=== PATIENT | male | born 1995 | race American Indian/Alaskan Native ===

== ENCOUNTER 2024-05-30 11:44 | Emergency (ER) | payer MEDICAID, OTHER ==
[~2024-05-30] VITALS: Ht 172.7 cm; Wt 47.7 kg
[2024-05-30 13:00] VITALS: PULSE 68; RESP 14; O2SAT 99
[2024-05-30] MEDS: SODIUM CHLORIDE 0.9% 500 ML IV ONE (13:00)
[2024-05-30 13:15] LABS: Basophils # (auto) 0 10 ^3/uL (0-0.2); Basophils % (auto) 0.6 % (0.0-2.0); Eosinophils # (auto) 0 10 ^3/uL (0-0.8); Eosinophils % (auto) 0.5 % (0.0-7.0); Hematocrit 40.3 % (41.0-53.0); Hemoglobin 13.7 g/dL (13.5-17.5); Lymphocytes # (auto) 1.2 10 ^3/uL (0.4-5.4); Lymphocytes % (auto) 24.7 % (10.0-50.0); Mean Corpuscular Hemoglobin 32.7 pg (28.0-32.0); Mean Corpuscular Volume 96.3 fL (80.0-100.0); Monocytes # (auto) 0.4 10 ^3/uL (0-1.3); Monocytes % (auto) 7.2 % (0.0-12.0); Neutrophils # (auto) 3.3 10 ^3/uL (1.6-8.6); Platelet Count (auto) 141 10^3/uL (140-450); Red Blood Cells 4.18 10^6/uL (4.5-5.90); Red Cell Distribution Width 12.6 % (11.8-14.3); White Blood Cell 4.9 10^3/uL (4.4-10.8)
[2024-05-30 13:33] LABS: Alanine Aminotransferase 11 U/L (7-40); Albumin 4.3 g/dL (3.2-4.8); Alkaline Phosphatase 70 U/L (46-116); Anion Gap 6 (5-15); Aspartate Aminotransferase 14 U/L (13-40); BUN/Creatinine Ratio 12.3 (10.0-20.0); Blood Urea Nitrogen 14 mg/dL (9-23); Calcium 9.6 mg/dL (8.7-10.4); Carbon Dioxide 31 mmol/L (20-31); Chloride 105 mmol/L (98-107); Glucose 96 mg/dL (74-106); Potassium 4.2 mmol/L (3.5-5.1); Sodium 142 mmol/L (136-145)
[2024-05-30 13:34] LABS: Bilirubin, Total 0.6 mg/dL (0.2-1.0); Total Protein 6.9 g/dL (5.7-8.2)
[2024-05-30] MEDS: IOHEXOL 300 MG/ML 100ML BOTTLE IJ ONE (14:24)
--- NOTE | 2024-05-30 14:49 | DVH ---
Exam: CT CT AB PEL WITH IV CON ONLY History: ro mass, hx of cancer, now with diarrhea COMPARISON: None Technique: Multidetector spiral CT of the abdomen and pelvis was performed from lung bases to pubic s ymphysis. Intravenous contrast was administered during this examination. Portal venous imaging was obtained. Axial, coronal and sagittal multiplanar reformats were performed by the technologist on a separate workstation. Radiation Dose : 1. Abdomen/Pelvis: CTDIvol 5.1 mGy, DLP 244.52 mGy*cm. CONTRAST: Type of contrast: Omnipaque 300 Contrast injected: 100 ml Findings: Lung Bases: No acute or significant lung base finding. Normal heart size. No pleural or pericardial effusion. Liver: The liver is normal in size. No focal lesions. Normal hepatic vascular enhancement. Gallbladder and Biliary Tree: Cholelithiasis noted without secondary findings of cholecystitis or sweetie iary obstruction. Spleen: Unremarkable Pancreas: The pancreas is normal in appearance without focal lesions or abnormal enhancement. Adrenal Glands: Unremarkable Kidneys: No hydronephrosis. Bladder: Unremarkable Bowel: The stomach is grossly normal in appearance. Questionable wall thickening of the sigmoid colon and rectum may reflect mild proctocolitis. The appendix is not visualized; however, no secondary fi ndings of acute appendicitis identified. Ascites: Absent Lymphadenopathy: No mesenteric, retroperitoneal or periportal lymphadenopathy. Abdominal Wall and Mesentery: Unremarkable. Vasculature: The visualized abdominal aorta is normal in size and caliber. Abdominal and pelvic vess els demonstrate normal enhancement. Pelvic Organs: Unremarkable Musculoskeletal: No aggressive focal bony lesions, acute fractures or dislocation. IMPRESSION: 1. Questionable wall thickening of the sigmoid colon and rectum may reflect mild proctocolitis. 2. No suspicious mass or lymphadenopathy identified. Radiation optimization: All CT scans at this facility use at least one of these dose optimization kasandra hniques: automated exposure control mA and/or kV adjustment per patient size (includes targeted exam s where dose is matched to clinical indication) or iterative reconstruction.
--- NOTE | 2024-05-30 15:39 | ED.PDOC ---
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 Patient reports having symptoms, intermittently, for the past 6x months that worsened within the past few weeks, recently. Patient endorses on losing approximately 11lbs since. He states on no recent sick contact, travel, spoiled food, stressors, strenuous activities, or substance use/exposure along with any additional relevant or pertinent Hx. Patient reports being Dx with AML at the age of 17 and being Tx and in remission since the age of 18, with no f/u with an oncologist for >1 year. At time of assessment, he denies having any abdominal pain, hematemesis, hematochezia, rectal pain, urinary symptoms, or other associated symptoms or modifiers at this time. Chief Complaint: Diarrhea Time Seen by MD: 12:15 Reviewed Notes: Nurses Notes, Medications, Allergies Allergies: Coded Allergies: NO KNOWN ALLERGIES (Unverified , 05/30/24) Home Meds Active Scripts Metronidazole (Flagyl) 500 Mg Tab, 500 MG PO BID for 7 Days, #14 TAB Prov:MARTA STEWART MD 05/30/24 Ciprofloxacin Hcl (Cipro) 500 Mg Tab, 1 TAB PO BID for 7 Days, #14 TAB Prov:MARTA STEWART MD 05/30/24 Nutritional Supplements (ENSURE COMPLETE NUTRITION) Chocolat Liq, 1 BOTTLE PO TID, #30 BOTTLE Prov:MARTA STEWART MD 05/30/24 Information Source: Patient Mode of Arrival: Ambulatory Severity: Moderate Timing: Months Duration: Since onset Prehospital treatment: None Past Medical History PAST MEDICAL HISTORY: Cancer (AML leukemia, in-remission ) Surgical History: Denies all surgeries Family History Family History: Unknown Social History Smoker: Non-Smoker Alcohol: Denies ETOH Use Drugs: Denies Drug Use Lives In: Home Gastrointestinal: reports: diarrhea, nausea, poor appetite, vomiting, others (abdominal bloating; passing gas) Endocrine: reports: unexplained weight loss All Other Systems: Reviewed and Negative Physical Exam General Appearance: No Apparent Distress, Thin (malnourished ), Other (appears much older than stated age) HEENT: Normal ENT Inspection, Pharynx Normal, TMs Normal Neck: Full Range of Motion, Non-Tender, Normal, Normal Inspection Respiratory: Chest Non-Tender, Lungs Clear, No Accessory Muscle Use, No Respiratory Distress, Normal Breath Sounds Cardiovascular: No Edema, No JVD, No Murmur, No Gallop, Normal Peripheral Pulses, Regular Rate/Rhythm Breast Exam: Deferred Gastrointestinal: No Organomegaly, Non Tender, No Pulsatile Mass, Normal Bowel Sounds, Soft Genitalia: Deferred Pelvic: Deferred Rectal: Deferred Extremities: No calf tenderness, Normal capillary refill, Normal inspection, No rmal range of motion, Non-tender, No pedal edema Musculoskeletal : Apperance: Normal Neurologic: Alert, precision machine operator II-XII nml as Tested, No Motor Deficits, Normal Affect, Normal Mood, No Sensory Deficits Cerebellar Function: Normal Reflexes: Normal Skin: Dry, Normal Color, Warm Lymphatic: No Adenopathy Was a procedure done? Was a procedure done?: No Differential Dx Considerations may include: failure to thrive, cancer recurrence, viral syndrome, gastritis, gastroenteritis, spoiled food, acute abdomen X-Ray, Labs, Meds, VS Vital Signs Date Time Temp Pulse Resp B/P (MAP) Pulse Ox O2 Delivery O2 Flow Rate FiO2 05/30/24 15:59 58 18 109/66 (80) 98 05/30/24 13:00 68 14 99 Room Air* 0 21 05/30/24 13:00 68 14 100/60 (73) 99 05/30/24 12:11 98.9 88 16 102/73 (83) 100 Lab Test 05/30/24 13:02 Range/Units White Blood Count 4.9 4.4-10.8 10^3/uL Red Blood Count 4.18 L 4.5-5.90 10^6/uL Hemoglobin 13.7 13.5-17.5 g/dL Hematocrit 40.3 L 41.0-53.0 % Mean Corpuscular Volume 96.3 80.0-100.0 fL Mean Corpuscular Hemoglobin 32.7 H 28.0-32.0 pg Mean Corpuscular Hemoglobin Concent 34.0 32.0-36.0 g/dL Red Cell Distribution Width 12.6 11.8-14.3 % Platelet Count 141 140-450 10^3/uL Mean Platelet Volume 8.2 6.9-10.8 fL Neutrophils (%) (Auto) 67.0 37.0-80.0 % Lymphocytes (%) (Auto) 24.7 10.0-50.0 % Monocytes (%) (Auto) 7.2 0.0-12.0 % Eosinophils (%) (Auto) 0.5 0.0-7.0 % Basophils (%) (Auto) 0.6 0.0-2.0 % Neutrophils # (Auto) 3.3 1.6-8.6 10 ^3/uL Lymphocytes # (Auto) 1.2 0.4-5.4 10 ^3/uL Monocytes # (Auto) 0.4 0-1.3 10 ^3/uL Eosinophils # (Auto) 0 0-0.8 10 ^3/uL Basophils # (Auto) 0 0-0.2 10 ^3/uL Nucleated Red Blood Cells 0.0 % Sodium Level 142 136-145 mmol/L Potassium Level 4.2 3.5-5.1 mmol/L Chloride Level 105 98-107 mmol/L Carbon Dioxide Level 31 20-31 mmol/L Anion Gap 6 5-15 Blood Urea Nitrogen 14 9-23 mg/dL Creatinine 1.14 0.700-1.30 mg/dL Glomerular Filtration Rate Calc 90 >90 mL/min BUN/Creatinine Ratio 12.3 10.0-20.0 Serum Glucose 96 74-106 mg/dL Calcium Level 9.6 8.7-10.4 mg/dL Total Bilirubin 0.6 0.2-1.0 mg/dL Aspartate Amino Transferase (AST) 14 13-40 U/L Alanine Aminotransferase (ALT) 11 7-40 U/L Alkaline Phosphatase 70 46-116 U/L Total Protein 6.9 5.7-8.2 g/dL Albumin 4.3 3.2-4.8 g/dL Current Medications Medications (Trade) Dose Ordered Sig/Jimmie Route Start Time Stop Time Status Last Admin Sodium Chloride 500 ml @ 500 mls/hr Q1H ONCE IV 05/30/24 12:30 05/30/24 13:29 DC 05/30/24 13:[address] [address] Ph: [phone] DIAGNOSTIC IMAGING Diagnostic Imaging Report : [id number] Signed PATIENT: SHELLEY ANDRES ACCT: [id number] UNIT: [id number] : 1995 LOC: ER ROOM / BED: / AGE / SEX: 28 / M ADM STATUS: REG ER SERVICE 1207 ORDERING PHYSICIAN: MARTA STEWART MD PROCEDURE(s): ABPLIV - CT AB PEL WITH IV CON ONLY REASON: ro mass, hx of cancer, now with diarrhea ORDER NUMBER(s): [id number], ACCESSION NUMBER(s): [id number] Exam: CT CT AB PEL WITH IV CON ONLY History: ro mass, hx of cancer, now with diarrhea COMPARISON: None Technique: Multidetector spiral CT of the abdomen and pelvis was performed from lung bases to pubic symphysis. Intravenous contrast was administered during thi s examination. Portal venous imaging was obtained. Axial, coronal and sagittal multiplanar reformats were performed by the technologist on a separate workstation. Radiation Dose : 1. Abdomen/Pelvis: CTDIvol 5.1 mGy, DLP 244.52 mGy*cm. CONTRAST: Type of contrast: Omnipaque 300 Contrast injected: 100 ml Findings: Lung Bases: No acute or significant lung base finding. Normal heart size. No pleural or pericardial effusion. Liver: The liver is normal in size. No focal lesions. Normal hepatic vascular enhancement. Gallbladder and Biliary Tree: Cholelithiasis noted without secondary findings of cholecystitis or biliary obstruction. Spleen: Unremarkable Pancreas: The pancreas is normal in appearance without focal lesions or abnormal enhancement. Adrenal Glands: Unremarkable Kidneys: No hydronephrosis. Bladder: Unremarkable Bowel: The stomach is grossly normal in appearance. Questionable wall thickening of the sigmoid colon and rectum may reflect mild proctocolitis. The appendix is not visualized; however, no secondary findings of acute appendicitis identified. Ascites: Absent Lymphadenopathy: No mesenteric, retroperitoneal or periportal lymphadenopathy. Abdominal Wall and Mesentery: Unremarkable. Vasculature: The visualized abdominal aorta is normal in size and caliber. Abdominal and pelvic vessels demonstrate normal enhancement. Pelvic Organs: Unremarkable Musculoskeletal: No aggressive focal bony lesions, acute fractures or dislocation. IMPRESSION: 1. Questionable wall thickening of the sigmoid colon and rectum may reflect mild proctocolitis. 2. No suspicious mass or lymphadenopathy identified. Radiation optimization: All CT scans at this facility use at least one of these dose optimization techniques: automated exposure control mA and/or kV adjustment per patient size (includes targeted exams where dose is matched to clinical indication) or iterative reconstruction. ATED BY: JAYLA SALMON MD DICTATED DATE/TIME: 05/30/241445 SIGNED BY: JAYLA SALMON MD SIGNED DATE/TIME: 05/30/241445 CC: 28-year-old male with a known history of bone marrow transplant status post leukemia several years ago presents here with diarrhea that has been ongoing for 6 months and weight loss. At this time concerned about malignant pathology. CT scan of his abdomen and pelvis has been done with IV contrast. It demonstrates evidence of mild proctocolitis. Patient states he does not have a history of sex with men no history of gonorrhea chlamydia. At this time I have been treating him with ciprofloxacin and Flagyl. I spoke to his father over the phone and advised him of the patient's results and also the patient does need to see Oncology as he has not seen oncologist in several years. I have written him a prescription for ensure as patient states he has diarrhea with any type of fo od intake. Advised patient to return back to the ER if symptoms worsen or persist. Time of 1ST Reevaluation: 12:45 Reevaluation 1ST: Unchanged Patient Education/Counseling: Diagnosis, Treatment Family Education/Counseling: No Family Present Departure 1 Departure Time of Disposition: 15:50 Impression: Primary Impression: Proctocolitis Additional Impression: Failure to thrive Qualified Codes: R62.7 - Adult failure to thrive Disposition: 01 HOME / SELF CARE / HOMELESS Condition: Stable Additional Instructions: Follow up with your oncologist for further care. e-Prescriptions Metronidazole (Flagyl) 500 Mg Tab 500 MG PO BID for 7 Days, #14 TAB Prov: MARTA STEWART MD 05/30/24 Ciprofloxacin Hcl (Cipro) 500 Mg Tab 1 TAB PO BID for 7 Days, #14 TAB Prov: MARTA STEWART MD 05/30/24 Nutritional Supplements (ENSURE COMPLETE NUTRITION) Chocolat Liq 1 BOTTLE PO TID, #30 BOTTLE Prov: MARTA STEWART MD 05/30/24 Critical Care Note Critical Care Time?: No Stability Stability form required: No Heart Score Heart Score: Heart Score Response (Comments) Value History N/A 0 EKG N/A 0 Age N/A 0 Risk Factors N/A 0 Troponin N/A 0 Total 0 I personally scribed for MARTA STEWART MD ([email or web address]) on 05/30/24 at 15:39. Electronically submitted by Claudy Garner ([email or web address]). I personally scribed for MARTA STEWART MD ([email or web address]) on 05/30/24 at 16:19. Electronically submitted by Claudy Garner ([email or web address]). MARTA STEWART MD May 30, 2024 15:39
[2024-05-30] MEDS ORDERED: CIPR-173 PO (15:51)
[2024-05-30] MEDS ORDERED: METR-344 PO (15:51)
[2024-05-30] MEDS ORDERED: [UNRECOGNIZED DRUG - CODE] PO (15:51)
--- NOTE | 2024-05-30 15:51 | ED.PDOC ---
GI ASSESSMENT Chief Complaint: Diarrhea Time Seen by MD: 12:00 Allergies: Coded Allergies: NO KNOWN ALLERGIES (Unverified , 05/30/24) Home Meds Active Scripts Metronidazole (Flagyl) 500 Mg Tab, 500 MG PO BID for 7 Days, #14 TAB Prov:MARTA STEWART MD 05/30/24 Ciprofloxacin Hcl (Cipro) 500 Mg Tab, 1 TAB PO BID for 7 Days, #14 TAB Prov:MARTA STEWART MD 05/30/24 Nutritional Supplements (ENSURE COMPLETE NUTRITION) Chocolat Liq, 1 BOTTLE PO TID, #30 BOTTLE Prov:MARTA STEWART MD 05/30/24 Mode of Arrival: Ambulatory X-Ray, Labs, Meds, VS Vital Signs Date Time Temp Pulse Resp B/P (MAP) Pulse Ox O2 Delivery O2 Flow Rate FiO2 05/30/24 15:59 58 18 109/66 (80) 98 05/30/24 13:00 68 14 99 Room Air* 0 21 05/30/24 13:00 68 14 100/60 (73) 99 05/30/24 12:11 98.9 88 16 102/73 (83) 100 Lab Test 05/30/24 13:02 Range/Units White Blood Count 4.9 4.4-10.8 10^3/uL Red Blood Count 4.18 L 4.5-5.90 10^6/uL Hemoglobin 13.7 13.5-17.5 g/dL Hematocrit 40.3 L 41.0-53.0 % Mean Corpuscular Volume 96.3 80.0-100.0 fL Mean Corpuscular Hemoglobin 32.7 H 28.0-32.0 pg Mean Corpuscular Hemoglobin Concent 34.0 32.0-36.0 g/dL Red Cell Distribution Width 12.6 11.8-14.3 % Platelet Count 141 140-450 10^3/uL Mean Platelet Volume 8.2 6.9-10.8 fL Neutrophils (%) (Auto) 67.0 37.0-80.0 % Lymphocytes (%) (Auto) 24.7 10.0-50.0 % Monocytes (%) (Auto) 7.2 0.0-12.0 % Eosinophils (%) (Auto) 0.5 0.0-7.0 % Basophils (%) (Auto) 0.6 0.0-2.0 % Neutrophils # (Auto) 3.3 1.6-8.6 10 ^3/uL Lymphocytes # (Auto) 1.2 0.4-5.4 10 ^3/uL Monocytes # (Auto) 0.4 0-1.3 10 ^3/uL Eosinophils # (Auto) 0 0-0.8 10 ^3/uL Basophils # (Auto) 0 0-0.2 10 ^3/uL Nucleated Red Blood Cells 0.0 % Sodium Level 142 136-145 mmol/L Potassium Level 4.2 3.5-5.1 mmol/L Chloride Level 105 98-107 mmol/L Carbon Dioxide Level 31 20-31 mmol/L Anion Gap 6 5-15 Blood Urea Nitrogen 14 9-23 mg/dL Creatinine 1.14 0.700-1.30 mg/dL Glomerular Filtration Rate Calc 90 >90 mL/min BUN/Creatinine Ratio 12.3 10.0-20.0 Serum Glucose 96 74-106 mg/dL Calcium Level 9.6 8.7-10.4 mg/dL Total Bilirubin 0.6 0.2-1.0 mg/dL Aspartate Amino Transferase (AST) 14 13-40 U/L Alanine Aminotransferase (ALT) 11 7-40 U/L Alkaline Phosphatase 70 46-116 U/L Total Protein 6.9 5.7-8.2 g/dL Albumin 4.3 3.2-4.8 g/dL Current Medications Medications (Trade) Dose Ordered Sig/Jimmie Route Start Time Stop Time Status Last Admin Sodium Chloride 500 ml @ 500 mls/hr Q1H ONCE IV 05/30/24 12:30 05/30/24 13:29 DC 05/30/24 13:00 Departure 1 Departure e-Prescriptions Metronidazole (Flagyl) 500 Mg Tab 500 MG PO BID for 7 Days, #14 TAB Prov: MARTA STEWART MD 05/30/24 Ciprofloxacin Hcl (Cipro) 500 Mg Tab 1 TAB PO BID for 7 Days, #14 TAB Prov: MARTA STEWART MD 05/30/24 Nutritional Supplements (ENSURE COMPLETE NUTRITION) Chocolat Liq 1 BOTTLE PO TID, #30 BOTTLE Prov: MARTA STEWART MD 05/30/24 I personally scribed for MARTA STEWART MD ([email or web address]) on 05/30/24 at 18:01. Electronically submitted by Claudy Garner ([email or web address]). MARTA STEWART MD May 30, 2024 15:51
[2024-05-30 15:59] VITALS: BP 109/66; PULSE 58; RESP 18; O2SAT 98
== END 2024-05-30 16:29 | disposition home or self-care (01) ==
LOC: ER 11:44
DX: R62.7 Adult failure to thrive (principal); K52.29 Other allergic and dietetic gastroenteritis and colitis; C92.00 Acute myeloblastic leukemia, not having achieved remission; Z94.81 Bone marrow transplant status
CPT/HCPCS: 36415; 74177; 80053; 85025; 99285; J7030; J7040; Q9967